=== PATIENT | female | born 1985 | race Caucasian/White ===

== ENCOUNTER 2024-04-07 21:42 | Emergency (ER) | payer OTHER, SELFPAY ==
[2024-04-07 21:44] VITALS: BP 107/66
--- NOTE | 2024-04-07 22:39 | ED.GENMED ---
History of Present Illness
General
Chief Complaint: Substance Abuse
Source: patient
Exam Limitations: none
Time Seen by Provider: 04/07/24 22:39
Nursing documentation reviewed up to this point in time: agreed with
History of Present Illness
History of Present Illness:
38-year-old female with drug abuse. She is using opiates, benzos and meth. She states she is smoking them and taking Xanax pills. She is looking for detox. [facility] advised her to come here for clearance.
Past History
Past History
ED Past Medical History: None
ED Past Surgical History: Orthopedic (Right knee)
Social History
Tobacco: Smoker
Alcohol: None
Drug: Cocaine, Narcotics and Other (Methamphetamines)
Living: other (With boyfriend)
Review of Systems
Review of Systems
Allergies reviewed?: Yes
All Other Systems: Not applicable
Psychiatric: Reports anxiety
Phy Exam
Physical Exam
Physical Exam:
Physical Exam
General: no apparent distress, not acutely ill
Neck: supple. no meningeal signs. normal posterior pharynx
Heart: s1/s2 regular rate and rhythm, no murmur. equal radial
pulses.
HEENT: Pupils equal round reactive to light, EOMI
Lungs: no acute respiratory distress. clear bilaterally
Abdomen: normal bowel sounds. not tender. no CVAT
Neuro: alert and oriented. no focal neurological deficits cranial nerves II through XII intact
Skin: no rash, bruise right thigh
Psychiatric: well kept. interactive and cooperative
Extremities: no edema. no calf tenderness. negative homans. good distal pulses
Course
Orders/Labs/Results
Orders:
Orders
04/07/24 22:52
Alcohol Urgent
Basic Metabolic Panel Urgent
Complete Blood Count/With Diff Urgent
HCG, Serum Qualitative Screen Urgent
Comment: ADD ON
Urine Drug Abuse Screen Urgent
Date Specimen was Collected: 04/07/24
Time Specimen was Collected: 22:30
04/07/24 23:01
Add On- LAB Urgent
Tests Added?: alcohol, qual bhcg
Abnormal Lab Results
04/07/24
22:52
Hct 35.7 L %
(37.0-47.0)
MCV 79.7 L fL
(81.0-99.0)
04/07/24 22:52
Vital Signs
Initial and Last Documented VS:
Initial Vital Signs
Temp Pulse BP Pulse Ox
98.9 F 92 107/66 99
04/07/24 21:44 04/07/24 21:44 04/07/24 21:44 04/07/24 21:44
Last Documented Vital Signs
Temp Pulse BP Pulse Ox
98.9 F 92 107/66 99
04/07/24 21:44 04/07/24 21:44 04/07/24 21:44 04/07/24 21:44
MDM/Problems Addressed
Differential Diagnosis Includes:
Opiate, benzodiazepine and methamphetamine withdrawal.
MDM/Problems Addressed:
38-year-old female with methamphetamine, opiate and benzodiazepine abuse. No signs of withdrawal at this time. Await disposition by [facility], if able to find rehab. Patient is stable for discharge.
*Pulse Oximetry
Patient hypoxic: no
*Critical Care Note
Total Time (30-74mins, 75-104mins- exclusive of procedures): Not Applicable
Data Reviewed
Source: previous hospital records (Requested records, await records from [facility])
Patient Management
Social determinants of health affecting care: Living situation
Discussion with other providers: Other ([facility])
Escalation/DeEscalation of care consider admission/obs:
Admit not indicated
ED Attending Note
-
Portions of this chart may have been created with voice recognition software.� Occasional wrong word or��sound alike� substitutions may have occurred due to the inherent limitations of voice recognition software.
Discharge Plan
Departure
Patient with high blood pressure during this ER visit?: No
Condition: Good
Discharge Problem:
Methamphetamine abuse, Opiate abuse, continuous, Benzodiazepine abuse
Instructions: Drug Misuse and Addiction (DC), Polysubstance Use Disorder (DC)
Interventions
Interventions:
*Risk Screen - Suicide Last Done: 04/07/24 22:42
*General Assessment Last Done: 04/07/24 22:40
*Neglect/Abuse Screening Last Done: 04/07/24 22:40
ED-Psychological Assessment Last Done: 04/07/24 22:42
Discharge Date and Time
Print Language: STATELESS
[2024-04-07 22:57] LABS: % Basophils 0.6 % (0-2); % Eosinophils 2.4 % (0-6); % Immature Granulocytes 0.2 % (0-0.5); % Lymphocytes 32.8 % (20.5-51.1); % Monocytes 7.4 % (1.7-9.3); % Neutrophils 56.6 % (42.2-75.2); Absolute Eosinophils 0.2 10^3/uL (0-0.7); Absolute Monocytes 0.5 10^3/uL (0.1-0.6); Absolute Neutrophils 3.5 10^3/uL (1.4-6.5); Hematocrit 35.7 % (37.0-47.0); Hemoglobin 12.3 g/dL (12.0-16.0); Mean Corp Hgb Conc. 34.5 g/dL (33.0-37.0); Mean Corpuscular Hgb 27.5 pg (27.0-31.0); Mean Corpuscular Volume 79.7 fL (81.0-99.0); Nucleated Red Blood Cells % 0 %; Platelet Count 368 10^3/uL (130-400); Red Blood Cell Count 4.48 10^6/uL (4.20-5.40); Red Cell Dist. Width 13.8 % (11.5-14.5); White Blood Cell Count 6.2 10^3/uL (4.8-10.8)
[2024-04-07 23:08] LABS: Amphetamines Positive (Negative); Barbiturates Negative (Negative); Benzodiazepines Positive (Negative); Buprenorphine Negative (Negative); Cocaine Negative (Negative); Marijuana Positive (Negative); Methadone Negative (Negative); Methamphetamines Positive (Negative); Opiates Negative (Negative); Phencyclidine Negative (Negative); Tricyclic Antidepressants Negative (Negative)
[2024-04-07 23:13] LABS: HCG, Serum Qualitative Screen Negative
[2024-04-07 23:16] LABS: Blood Urea Nitrogen 17 mg/dl (7-17); Calcium 9.5 mg/dl (8.4-10.2); Carbon Dioxide 31 mmol/L (22-30); Chloride 104 mmol/L (98-107); Glucose 125 mg/dl (70-99); Sodium 140 mmol/L (135-145); eGFR > 60.00
[2024-04-07 23:35] LABS: Alcohol None Detected
[2024-04-07 23:44] LABS: Fentanyl, Urine Positive (Negative)
== END 2024-04-08 00:20 | disposition home or self-care (01) ==
LOC: EMR 21:42
PROVIDERS: Student in an Organized Health Care Education/Training Program; EMERGENCY PHYSICIAN Emergency Medicine
DX: F11.10 Opioid abuse, uncomplicated (principal); F13.10 Sedative, hypnotic or anxiolytic abuse, uncomplicated; F15.10 Other stimulant abuse, uncomplicated; F17.200 Nicotine dependence, unspecified, uncomplicated
CPT/HCPCS: 99283; 80048; 80306; 80307; 82077; 84703; 85025